=== PATIENT | male | born 1975 | race Caucasian/White ===

== ENCOUNTER → 2018-06-09 | Outpatient (REF) | payer BC | LOC: M SFHCLERA 19:21 | PROVIDERS: ATTEND Physician Assistant | DX: R59.9 Enlarged lymph nodes, unspecified (principal) ==

== ENCOUNTER → 2018-07-13 | Outpatient (CLI) | payer BC ==
--- NOTE | 2018-07-15 09:38 | SLEEPHOME ---
DATE OF PROCEDURE: 07/13/2018 ORDERED BY: Dr. Wakefield [facility] home sleep testing was performed due to concern for the obstructive sleep apnea syndrome in this patient with a history of excessive somnolence and nonrestorative sleep who has comorbidities of hypertension. For testing a nocturnal T3 respiratory monitoring device was used. Continuous record was made of pulse, oxygen saturation, airflow, chest and abdominal strain and body position. 10 hours and 59 minutes of data were reviewed. Of these 7 hours and 57 minutes were marked as time in bed. During the interval marked time in bed, there were 337 respiratory events identified of 10 seconds in duration or greater for a respiratory event index of 42.4. The events were primarily obstructive but 55 central and mixed apneas were also seen. Baseline pulse rate 72 beats per minute. Pulse rate ranged from 57-112. Baseline saturation 93%. Saturations fell as low as 64%. Testing was performed in both the supine and nonsupine positions. IMPRESSION: Abnormal home sleep testing with repetitive respiratory events and oxygen desaturations to 64% with a respiratory event index of 42.4 is consistent with the obstructive sleep apnea syndrome. RECOMMENDATIONS: The patient should be encouraged to undergo formal sleep evaluation and in laboratory pressure titration.
== END ==
LOC: M SLEEP HO 14:18
PROVIDERS: ATTEND Internal Medicine Pulmonary Disease
DX: G47.30 Sleep apnea, unspecified (principal)

== ENCOUNTER → 2018-08-07 | Outpatient (CLI) | payer BC ==
--- NOTE | 2018-08-07 13:33 | REP ---
LEFT HIP, TWO VIEWS: Two views of the left hip are performed. There is no acute fracture or dislocation. Mild degenerative changes are seen of the left hip joint with mild joint space narrowing, subchondral sclerosis and cystic change and mild spurring. IMPRESSION: Mild degenerative changes. No fracture or dislocation. Electronically Signed by Braden Esposito MD 08/07/2018 07:02 P
== END ==
LOC: M LRY 11:59
PROVIDERS: ATTEND Physician Assistant
DX: M25.552 Pain in left hip (principal); M16.12 Unilateral primary osteoarthritis, left hip

== ENCOUNTER → 2018-09-18 | Outpatient (CLI) | payer BC ==
--- NOTE | 2018-09-18 12:13 | REP ---
CHEST, TWO VIEWS: COMPARISON: 09/03/2018. There is a calcified granuloma again seen in the left lung base. There is no acute infiltrate. The heart is normal in size. The mediastinal silhouette is unchanged. Visualized osseous structures appear intact. IMPRESSION: No acute infiltrate. Electronically Signed by Braden Esposito MD 09/18/2018 03:47 P
== END ==
LOC: M LRY 10:05
PROVIDERS: ATTEND Physician Assistant
DX: R06.2 Wheezing (principal)

== ENCOUNTER → 2018-09-18 | Outpatient (REF) | payer BC | LOC: M SFHCLERA 10:43 | PROVIDERS: ATTEND Physician Assistant | DX: J02.9 Acute pharyngitis, unspecified (principal) ==

== ENCOUNTER → 2018-11-02 | Outpatient (REF) | payer BC | LOC: M LAB REF 12:24 | PROVIDERS: ATTEND Nurse Practitioner Adult Health | DX: L81.8 Other specified disorders of pigmentation (principal) ==

== ENCOUNTER → 2019-07-01 | Outpatient (REF) | payer OTHER | LOC: M SFHCLERA 10:13 | PROVIDERS: ATTEND Physician Assistant | DX: R50.9 Fever, unspecified (principal) ==

== ENCOUNTER → 2023-09-11 | Outpatient (CLI) | payer OTHER | LOC: M WUC 15:22 | PROVIDERS: ATTEND Nurse Practitioner Family | DX: M17.12 Unilateral primary osteoarthritis, left knee (principal) ==